=== PATIENT | female | born 1975 | race Caucasian/White ===

== ENCOUNTER 2017-08-05 01:45 | Emergency (ER) | payer OTHER ==
[~2017-08-05] VITALS: Ht 162.6 cm; Wt 72.7 kg
--- NOTE | 2017-08-05 01:52 | ERA ---
ER Documentation Chief Complaint Date/Time DATE: 08/05/17 TIME: 01:52 Chief Complaint Seizure HPI . The patient is a 42-year-old female, presenting to the ER because of new onset seizure prior to arrival that lasted for approximately 5 minutes according to the boyfriend who witnessed a seizure. She was postictal when the EMS arrived. However she is awake, alert, able to answer question appropriately. She denies headache, blurred vision, tongue bite, fecal/urinary incontinence, abdominal pain, vomiting, dysuria, diarrhea. She smokes marijuana cigarettes, denies drinking, is under a lot of stress. She had history of heroin abuse Past medical history: Insomnia, anxiety, panic disorder Past surgical history: cholecystectomy. ROS All systems reviewed and are negative except as per history of present illness. Medications Home Meds Reported Medications Quetiapine Fumarate* (Quetiapine Fumarate*) 100 Mg Tablet, 100 MG PO HS, TAB 08/05/17 Alprazolam* (Xanax*) 2 Mg Tablet, 2 MG PO BID, TAB 08/05/17 Discontinued Reported Medications Zolpidem Tartrate* (Zolpidem Tartrate*) 5 Mg Tablet, 5 MG PO QHS Y for INSOMNIA , #30 TAB 08/05/17 Allergies Allergies: Coded Allergies: morphine (Unverified Allergy, Severe, RASH, HIVES, ITCHING , 08/05/17) ibuprofen (Unverified Allergy, Intermediate, ITCHING, RASH , 08/05/17) PMhx/Soc History of Surgery: Yes (cholecystectomy ) Anesthesia Reaction: No Hx Neurological Disorder: Yes (headaches ) Hx Respiratory Disorders: No Hx Cardiac Disorders: No Hx Psychiatric Problems: No Hx Miscellaneous Medical Probl: No Hx Alcohol Use: No Hx Substance Use: Yes (smokes Marijuana occassionally ) Hx Tobacco Use: Yes Physical Exam Vitals Vital Signs Date Time Temp Pulse Resp B/P Pulse Ox O2 Delivery O2 Flow Rate FiO2 08/05/17 02:10 98.7 74 14 105/70 98 08/05/17 02:10 98.7 74 14 105/70 98 Room Air Physical Exam Const: No acute distress. Head: Atraumatic. Eyes: Normal Conjunctiva. ENT: Normal External Ears, Nose and Mouth. Neck: Full range of motion. No meningismus. Resp: Clear to auscultation bilaterally. Cardio: Regular rate and rhythm. Abd: Soft, non distended, normal bowel sounds, non tender. Skin: No petechiae or rashes. Back: No midline or flank tenderness. Ext: No cyanosis, or edema. Neur: Awake and alert. No focal deficit Psych: Normal Mood and Affect. Results 24 hrs Current Medications Medications (Trade) Dose Ordered Sig/Maribel Route PRN Reason Start Time Stop Time Status Last Admin Dose Admin Levetiracetam (Keppra 500 Mg/ 100ml (Pmx)) 100 ml @ 400 mls/hr ONCE ONCE IVPB 08/05/17 02:00 08/05/17 02:14 DC Procedures/MDM EKG: Read by emergency physician Rate/Rhythm: Normal Sinus Rhythm 69 beats/min QRS, ST, T-waves: No ST elevation, no T inversion, RWA Impression: Abnormal EKG MEDICAL MAKING DECISION: The patient is a 42-year-old female, presenting with suspected new onset seizure. She is awake, alert, not postictal. She now declined all testing and wanted to sign out AGAINST MEDICAL ADVICE. The patient signed out AGAINST MEDICAL ADVICE. Risks, benefits, alternatives were explained to the patient. Risks include but not limited to and permanent disability Departure Diagnosis: Primary Impression: Seizure disorder Condition: Stable (AMA) Comments She was advised to return if any concern JAH SWEET MD Aug 05, 2017 01:52
[2017-08-05] MEDS ORDERED: LEVETIRACETAM 500 MG (PMX) 100 ML IVPB ONE (02:00)
[2017-08-05 02:10] VITALS: BP 105/70; PULSE 74; RESP 14; TEMP 98.7; Ht 162.6 cm; Wt 72.7 kg
[2017-08-05] MEDS ORDERED: QUET100T32 PO (02:37)
[2017-08-05] MEDS ORDERED: ALPR2TAB PO (02:37)
[2017-08-05] MEDS ORDERED: ZOLP5TAB7 PO (02:37)
== END 2017-08-05 02:54 | disposition left against medical advice (07) ==
LOC: E/R 01:45
DX: G40.909 Epilepsy, unspecified, not intractable, without status epilepticus (principal); Z87.891 Personal history of nicotine dependence
CPT/HCPCS: 93005; J1953; Z7502